=== PATIENT | male | born 1970 | race Asian ===

== ENCOUNTER 2023-10-10 11:35 | Emergency (ER) | payer BC ==
[~2023-10-10] VITALS: Ht 180.3 cm; Wt 93.0 kg
[2023-10-10 12:18] VITALS: BP_SYST 143; PULSE 113; RESP 16; TEMP 96.9; O2SAT 97
[2023-10-10 13:19] LABS: INFLUENZA TYPE A Negative (NEGATIVE); INFLUENZA TYPE B NEGATIVE (NEGATIVE)
[2023-10-10] MEDS ORDERED: ZIT250 PO (13:42)
[2023-10-10] MEDS ORDERED: PRED50TA PO (13:42)
[2023-10-10 14:00] VITALS: BP_SYST 143; PULSE 113; RESP 16; TEMP 96.9; O2SAT 97
== END 2023-10-10 13:59 | disposition home or self-care (01) ==
LOC: SED 11:35
DX: J40 Bronchitis, not specified as acute or chronic (principal); R05.9 Cough, unspecified; M79.10 Myalgia, unspecified site; R06.02 Shortness of breath; E11.9 Type 2 diabetes mellitus without complications; I10 Essential (primary) hypertension; E78.5 Hyperlipidemia, unspecified; Z79.899 Other long term (current) drug therapy; Z20.822 Contact with and (suspected) exposure to COVID-19
CPT/HCPCS: 36415; 71045; 99284